=== PATIENT | male | born 2000 | race Caucasian/White ===

== ENCOUNTER 2025-08-18 10:35 | Emergency (ER) | payer OTHER, SELFPAY ==
--- OUTSIDE RECORDS SUMMARY | 2025-08-18 11:01 | XMS_ITS | Clinical Summary ---
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 Role Phone Unavailable Primary Care Provider Unavailabl e Source Comments NOTE: The information displayed by Care Everywhere is extracted from the complete medical record and may not identify all current or past patient conditions.[facility] Allergies No known active allergies Medications No known medications Immunizations Immunization Administration Dates Next Due FluVIRIN (4+ years) Tri *VIAL* 06/03/2013,2012 HPV, Quadrivalent (GARDASIL 4) 06/03/2013,2012,09/23/2012 Hep A Pediatric (Hepatitis A) 07/11/2011 Moderna SARS-CoV-2 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) 12/12/2020,11/07/2020 Tdap (Tetanus, Diphtheria, a cellular Pertussis) 09/23/2012 Social History Tobacco Use Types Packs/Day Years Used Date Smoking Tobacco: Never Assessed Sex and Gender Information Value Date Recorded Sex Assigned at Not on file Legal Sex Male 10:16 AM PDT Gender Identity Not on file Sexual Orientation Not on file Last Filed Vital Signs Vital Sign Reading Time Taken Comments Blood Pressure 129/67 06/06/2019 10:36 AM PDT Pulse 75 06/06/2019 10:36 AM PDT Temperature 36.8 C (98.3 F) 06/06/2019 10:36 AM PDT Respiratory Rate 12 06/06/2019 10:36 AM PDT Oxygen Saturation 100% 06/06/2019 10:36 AM PDT Inhaled Oxygen Concentration - - Weight 82.1 kg (181 lb) 06/06/2019 10:36 AM PDT Height - - Body Mass Index - - Plan of Treatment Health Maintenance Due Date Last Done Comments Adult HIV Screen (1-time) 2015 Hep C Screening (1-time) 2018 Vaccine: [id number] (2 - T d or Tdap) 09/23/2022 09/23/2012 FLU VACCINE (#1) 04/20/2025 06/03/2013, 09/23/2012 Vaccine: HPV Completed 06/03/2013, 10/18, 09/23/2012 Insurance Advance Directives For more information, please contact: [phone] Documents on File Type Date Recorded 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
[2025-08-18 11:06] VITALS: BP 138/83; PULSE 70; RESP 18; TEMP 36.6; O2SAT 100; BMI 20.2
--- NOTE | 2025-08-18 11:14 | DI.RAD.S_ITS ---
PROCEDURE: XR ANKLE LT MIN 3V INDICATIONS: fall TECHNIQUE: 3 views of the ankle were acquired. COMPARISON: None. FINDINGS AND IMPRESSION: No displaced fracture or dislocation is identified. No suspicious soft tissue calcifications. If there is high concern for occult injury, consider repeat radiography in about 7 days or cross-sectional imaging. Approved by: Petr Gonzalez M.D. on 08/18/2025 at 12:21
--- NOTE | 2025-08-18 11:14 | DI.RAD.S_ITS ---
PROCEDURE: XR FOOT LT MIN 3V INDICATIONS: fall TECHNIQUE: 3 views of the foot were acquired. COMPARISON: None. FINDINGS AND IMPRESSION: No displaced fracture or dislocation is seen. No suspicious soft tissue calcifications. If there is high concern for occult injury, consider repeat radiography in about 7 days or cross-sectional imaging. Dictated by: Petr Gonzalez M.D. on 08/18/2025 at 12:19 Approved by: Petr Gonzalez M.D. on 08/18/2025 at 12:20
--- NOTE | 2025-08-18 13:16 | ED.LOWEXIN ---
HPI - Extremity Injury (Lower) General Chief Complaint: Extremity Injury, Lower Stated Complaint: fell, Possible broken left ankle Time Seen by Provider: 08/18/25 11:36 History of Present Illness HPI Narrative: Mr. Trinidad is a pleasant 24-year-old male with no reported past medical history who presents to the emergency department for left ankle pain after an injury that occurred yesterday. Yesterday he hopped off a ledge, landed on a wooden stake and then twisted the left ankle, inward. He has had pain with weight-bearing then and has swelling on the lateral aspect of the ankle. No obvious deformities, no open wounds, he has no numbness tingling weakness or color change. No blood thinners no head strike. Related Data Allergies Allergy/AdvReac Type Severity Reaction Status Date / Time No Known Drug Allergies Allergy Verified 08/18/25 11:11 Review of Systems Review of Systems ROS Unobtainable: All systems reviewed & are unremarkable except as noted in HPI and below Patient History Social History Smoking Status: Former smoker Smoking Status: Former smoker tobacco type: cigarettes Exam Narrative Exam Narrative: GENERAL: 24 year old patient appears stated age. Well-developed patient, in no acute distress. HEAD: Atraumatic. Normocephalic. EYES: No scleral icterus. No injection or drainage. CARDIOVASCULAR: Regular rate RESPIRATORY: ?Nonlabored respirations. ?Speaking in clear, full sentences. EXTREMITIES: Left ankle with mild edema on lateral aspect, no focal bony tenderness but there is tenderness over the lateral aspect of the ankle just distal to the lateral malleolus. Palpable DP and PT pulse, brisk cap refill of the toes, no open wounds or obvious deformities. Achilles tendons palpable bilaterally. Patient is able to plantar and dorsiflex but with the pain. NEURO: AOx3. ?Clear speech. ? SKIN: No rash or erythema of visible areas Initial Vital Signs Initial Vital Signs: Vital Signs Temperature 97.9 F 08/18/25 11:06 Pulse Rate 70 08/18/25 11:06 Respiratory Rate 18 08/18/25 11:06 Blood Pressure 138/83 08/18/25 11:06 Pulse Oximetry 100 08/18/25 11:06 Oxygen Delivery Method Room Air 08/18/25 11:06 Course Orders Ordered: ED Orders 08/18/25 11:14 XR ankle LT min 3V Stat XR foot LT min 3V Stat Vital Signs Vital signs: Vital Signs - 8 hr 08/18/25 13:32 Pulse Rate 71 Respiratory Rate 16 Blood Pressure 114/77 Pulse Oximetry 100 Oxygen Delivery Method Room Air MDM - Extremity Injury (Lower) Medical Records Medical records narrative: None Imaging Data Left Ankle XR: Radiologist's Impression: PROCEDURE: XR ANKLE LT MIN 3V INDICATIONS: fall TECHNIQUE: 3 views of the ankle were acquired. COMPARISON: None. FINDINGS AND IMPRESSION: No displaced fracture or dislocation is identified. No suspicious soft tissue calcifications. If there is high concern for occult injury, consider repeat radiography in about 7 days or cross-sectional imaging. Approved by: Petr Gonzalez M.D. on 08/18/2025 at 12:21 Left Foot XR: Radiologist's Impression: PROCEDURE: XR FOOT LT MIN 3V INDICATIONS: fall TECHNIQUE: 3 views of the foot were acquired. COMPARISON: None. FINDINGS AND IMPRESSION: No displaced fracture or dislocation is seen. No suspicious soft tissue calcifications. If there is high concern for occult injury, consider repeat radiography in about 7 days or cross-sectional imaging. Dictated by: Petr Gonzalez M.D. on 08/18/2025 at 12:19 Approved by: Petr Gonzalez M.D. on 08/18/2025 at 12:20 [facility] Narrative Medical decision making narrative: 24-year-old male with no reported past medical history who presents to the emergency department for left ankle pain after an injury that occurred yesterday. Differential diagnosis includes but is not limited to ankle sprain, strain, fracture, dislocation etc. On exam patient is in no acute distress, nontoxic-appearing, all vital signs within normal limits. Left ankle without obvious deformity, no open wound. He is neurovascularly intact. Tenderness and swelling lateral aspect. X-ray reveals no acute abnormalities of ankle or foot. Suspect lateral ankle sprain. He was placed into a hard ankle stirrup splint and provided with crutches. Discussed rice therapy and Orthopedics follow up. Discussed ER return precautions. Patient verbalized understanding of all information is agreeable with the plan. He is ambulatory with crutches and stable for discharge home, declines pain medication. Discharge Plan Departure Patient Disposition: Home Clinical Impression: Left ankle sprain Qualifiers: Encounter type: initial encounter Involved ligament of ankle: unspecified ligament Qualified Code(s): S93.402A - Sprain of unspecified ligament of left ankle, initial encounter Instructions: DI for Ankle Sprain Activity Restrictions/Additional Instructions: Dear Mr. Trinidad, Thank you for coming to the emergency department. I am sorry that you injured her left ankle. X-rays today do not reveal any broken bones. Please follow up with [facility]. Please continue to use crutches as needed and a left ankle brace. Please use RICE therapy for your pain in addition to ibuprofen/acetaminophen. Rest the painful area. Ice the area of pain/swelling for at least 15 minutes, 4x a day. Compress the area of swelling using a brace, wrap, or splint if applied. Elevate the painful or swollen extremity by supporting it above the level of the heart with pillows when sitting or laying. Please follow up with your primary care doctor within the next 2-3 days for ER follow-up. (If you do not have a PCP you can call [phone]. ?to schedule an appointment with an [facility] Primary Care Provider) IF YOU DEVELOP ANY NEW OR WORSENING SYMPTOMS, RETURN TO THE ER! Please read the attached instructions, they highlight more specific treatments and interventions for you at home. Thank you for letting me participate in your care, Lian Putnam PA-C Referrals: Radha Lozoya DO [Physician, Orthopedic Surgery] Referral Note: Left Ankle Stand Alone Forms: Patient Portal/API
[2025-08-18 13:32] VITALS: BP 114/77; PULSE 71; RESP 16; O2SAT 100
--- NOTE | 2025-08-18 13:32 | PC.NURSE ---
Patient evaluated, treated, and discharged by provider prior to nursing assessment.
== END 2025-08-18 13:33 | disposition home or self-care (01) ==
PROVIDERS: Emergency Provider Physician Assistant
DX: S93.402A Sprain of unspecified ligament of left ankle, initial encounter (principal); X50.1XXA Overexertion from prolonged static or awkward postures, initial encounter
CPT/HCPCS: 73610; 73630; 99281; 99283